=== PATIENT | female | born 1980 | race Caucasian/White ===

== ENCOUNTER 2017-07-19 19:19 | Inpatient (IN) | payer BC ==
[~2017-07-19 19:19] MED LIST: Dinoprostone* 10 MG VAG.SUPP VAGINAL ONE
--- NOTE | 2017-07-19 20:17 | HP ---
General Information - General Information Maternal Age: 37 Grav: 2 Para: 1 SAB: 0 IEA: 0 Estimated Due Date: 07/22/17 - 38 07/15 Determined By: Early Ultrasound Gestational Age in Weeks and Days: 35 Weeks and 5 Days Maternal Blood Type and Rh: O Positive - Results this Serology/RPR Result: Non-Reactive Rubella Result: Immune HBsAg Result: Negative HIV Result: Negative GBS Culture Result: Positive Past Medical History Delivery History: Hx Uncomplicated Vaginal Delivery Pertinent Past Medical History: See Records - Hx infertility Pertinent Past Surgical History: See Records - laparoscopy endometriosis 2008, 2016 Pertinent Family History: Non-Contributory - Antepartal Records Antepartal Records: Reviewed, Complicated by: - IVF, normal growth sono at 32 wks. Anemia, taking Fe daily. AMA, NIPT normal Review of Systems Constitutional: Comfortable CV Complaint: No Respiratory: Shortness of Breath: No Genitourinary: No Dysuria, No Bleeding, No Leaking Fluid Musculoskeletal: No Complaint Neurological: No Headache Movement: Normal - Comments Occasional nausea; loose stools Exam Allergies/Adverse Reactions: Allergies iodine Allergy (Verified 06/22/17 16:16) Unknown Reaction Details Family hx of rxn Tetanus Vaccines and Toxoid Allergy (Verified 06/22/17 16:16) Unknown Reaction Details Family hx of rxn BP 133/85, 119/81; T; 98.3 P 104; R 18 - Measurements Height: 5 ft 3 in Weight: 195 lb Body Mass Index (BMI): 34.5 Pre- Weight: 180 lb - 15 lbs this - Exam Abdomen: No Upper Quadrant Pain Breast: Breast Exam Deferred CVA: No CVA Tenderness Extremities: No Edema Heart: Normal Rhythm/Heart Sounds HEENT: No Significant Findings Lungs: Clear Bilaterally Rectal: Rectal Exam Deferred Reflexes: DTR 2+ Thyroid: No Thyromegaly - Cervical Exam 1-2 outer os, inner os closed/50/-2, vtx - Abdominal Exam Abdomen Exam: Non-Tender, Fundal Height Consistent with Dates - Membranes Membrane Status: Intact - Ultrasound/Biophysical Profile Ultrasound Status: Not Done EFM Findings - External Monitor Findings Baseline Heart Rate: 130 External Monitor Findings: Accelerations Present, No Pattern of Variable or Late Decelerations, Variability Moderate Contractions: None Assessment/Plan - Obstetrical Risk Factors Obstetrical Risk Factors: GBS Positive - Plan Plan: Cervical Ripening - Date/Time of Admission Date of Admission: 07/19/17 Time of Admission: 20:21
[2017-07-20] MEDS ORDERED: Misoprostol TAB* 100 MCG VAGINAL ONE (08:20)
[2017-07-20 12:38] LABS: ABS Basophils 0 10^3/ul (0-0.2); ABS Eosinophils 0 10^3/ul (0-0.6); ABS Lymphocytes 0.8 10^3/ul (1.0-4.8); ABS Monocytes 0.8 10^3/ul (0-0.8); ABS Nucleated RBC 0 10^3/ul; Eosinophil % 0.2 % (0-6); Hematocrit 30 % (35-47); Hemoglobin 9.4 g/dl (12.0-16.0); Lymphocyte % 11.9 % (25-47); Mean Corpuscular HGB Conc 32 g/dl (31-36); Mean Corpuscular Hemoglobin 26 pg (27-31); Mean Corpuscular Volume 82 fL (80-97); Mean Platelet Volume 9.7 um3 (7.4-10.4); Nucleated Red Blood Cells % 0.1; Platelet Count 182 10^3/ul (150-450); Red Blood Count 3.59 10^6/ul (4.0-5.4); Red Cell Distribution Width 16 % (10.5-15); White Blood Count 6.5 10^3/ul (3.5-10.8)
[2017-07-20] MEDS ORDERED: Oxytocin in LR* 20 UNITS/1,000 ML BAG IVPB ONE (12:39)
[2017-07-20] MEDS ORDERED: Oxytocin in LR* 20 UNITS/1,000 ML BAG IVPB SCH (13:00)
[2017-07-20] MEDS ORDERED: Penicillin G Potassium IV* 5,000,000 UNITS in NS 0.9% 100 ML* 100 ML IVPB ONE (16:19)
[2017-07-20] MEDS ORDERED: fentaNYL* 50 MCG/ML 2 ML VIAL (100 MCG VIAL) ONE (19:30)
[2017-07-20] MEDS ORDERED: OBEPIDURAL* 250 ML EPIDURAL ONE (19:32)
[2017-07-20] MEDS ORDERED: Phenylephrine IV* 40 MCG/ML 10 ML SYRINGE IV PUSH PRN (19:56)
[2017-07-20] MEDS ORDERED: Famotidine TAB* 20 MG PO PRN (19:56)
[2017-07-20] MEDS ORDERED: Sodium Citrate/Citric Acid* 15 ML UDC PO PRN (19:56)
[2017-07-20] MEDS ORDERED: EPHEDrine (Pressors)* 50 MG/ML VIAL IV PUSH PRN (19:56)
[2017-07-20] MEDS ORDERED: OBEPIDURAL* 250 ML EPIDURAL SCH (20:00)
[2017-07-20] MEDS: Penicillin G Potassium IV* 2,500,000 UNITS in NS 0.9% 100 ML* 100 ML IVPB SCH (20:37)
[2017-07-21] MEDS ORDERED: Misoprostol TAB* 200 MCG PR ONE (00:15)
[2017-07-21] MEDS ORDERED: Dibucaine 1% 28.35 GM TUBE PR PRN (00:36)
[2017-07-21] MEDS ORDERED: Oxytocin in LR* 20 UNITS/1,000 ML BAG IVPB SCH (00:38)
[2017-07-21] MEDS: Penicillin G Potassium IV* 2,500,000 UNITS in NS 0.9% 100 ML* 100 ML IVPB SCH ×3 (01:26→09:21)
[2017-07-21] MEDS: Ibuprofen TAB* 600 MG PO PRN ×4 (04:23→21:56)
[2017-07-21] MEDS ORDERED: Ammonia Inhalant* 1 EA AMP ONE (04:34)
[2017-07-21] MEDS ORDERED: Lidocaine 1% MPF* 2 ML VIAL ONE (07:33)
[2017-07-21] MEDS ORDERED: Ferrous Gluconate TAB* 324 MG TAB ONE ×2 (09:57→19:42)
[2017-07-21] MEDS: Ferrous Gluconate TAB* 324 MG TAB PO SCH (10:09)
[2017-07-21] MEDS: Docusate CAP* 100 MG PO SCH ×3 (10:09→19:57)
[2017-07-21] MEDS: Acetaminophen TAB* 325 MG PO PRN ×2 (11:50→19:58)
[2017-07-21] MEDS: Witch Hazel PAD* JAR TOPICAL PRN (15:48)
[2017-07-22] MEDS: Ibuprofen TAB* 600 MG PO PRN ×3 (04:05→21:03)
[2017-07-22 06:55] LABS: Hematocrit 18 % (35-47); Hemoglobin 5.8 g/dl (12.0-16.0); Mean Corpuscular HGB Conc 33 g/dl (31-36); Mean Corpuscular Hemoglobin 27 pg (27-31); Mean Corpuscular Volume 82 fL (80-97); Mean Platelet Volume 9.6 um3 (7.4-10.4); Platelet Count 164 10^3/ul (150-450); Red Blood Count 2.14 10^6/ul (4.0-5.4); Red Cell Distribution Width 16 % (10.5-15); White Blood Count 7.7 10^3/ul (3.5-10.8)
[2017-07-22] MEDS: Docusate CAP* 100 MG PO SCH ×3 (08:35→21:02)
[2017-07-22] MEDS: Ferrous Gluconate TAB* 324 MG TAB PO SCH ×2 (08:36→21:00)
[2017-07-22] MEDS: Witch Hazel PAD* JAR TOPICAL PRN (11:22)
[2017-07-22 19:24] LABS: ABS Basophils 0 10^3/ul (0-0.2); ABS Eosinophils 0 10^3/ul (0-0.6); ABS Lymphocytes 1.3 10^3/ul (1.0-4.8); ABS Monocytes 0.8 10^3/ul (0-0.8); ABS Neutrophils 6.4 10^3/ul (1.5-7.7); ABS Nucleated RBC 0 10^3/ul; Eosinophil % 0.5 % (0-6); Hematocrit 25 % (35-47); Hemoglobin 8.2 g/dl (12.0-16.0); Lymphocyte % 15.1 % (25-47); Mean Corpuscular HGB Conc 33 g/dl (31-36); Mean Corpuscular Hemoglobin 27 pg (27-31); Mean Corpuscular Volume 83 fL (80-97); Mean Platelet Volume 9.3 um3 (7.4-10.4); Nucleated Red Blood Cells % 0.1; Platelet Count 219 10^3/ul (150-450); Red Blood Count 2.98 10^6/ul (4.0-5.4); Red Cell Distribution Width 15 % (10.5-15); White Blood Count 8.6 10^3/ul (3.5-10.8)
[2017-07-23] MEDS: Ibuprofen TAB* 600 MG PO PRN ×2 (05:07→11:22)
[2017-07-23 07:12] LABS: ABS Basophils 0 10^3/ul (0-0.2); ABS Eosinophils 0.1 10^3/ul (0-0.6); ABS Monocytes 0.7 10^3/ul (0-0.8); ABS Neutrophils 4.5 10^3/ul (1.5-7.7); ABS Nucleated RBC 0 10^3/ul; Eosinophil % 1.2 % (0-6); Hematocrit 22 % (35-47); Hemoglobin 7.2 g/dl (12.0-16.0); Lymphocyte % 16.4 % (25-47); Mean Corpuscular HGB Conc 33 g/dl (31-36); Mean Corpuscular Hemoglobin 28 pg (27-31); Mean Corpuscular Volume 83 fL (80-97); Mean Platelet Volume 9.4 um3 (7.4-10.4); Nucleated Red Blood Cells % 0.1; Platelet Count 220 10^3/ul (150-450); Red Blood Count 2.62 10^6/ul (4.0-5.4); Red Cell Distribution Width 15 % (10.5-15); White Blood Count 6.3 10^3/ul (3.5-10.8)
[2017-07-23 08:01] VITALS: BP 106/63
[2017-07-23] MEDS: Ferrous Gluconate TAB* 324 MG TAB PO SCH (08:20)
[2017-07-23] MEDS: Docusate CAP* 100 MG PO SCH (08:20)
[2017-07-23] MEDS: Acetaminophen TAB* 325 MG PO PRN (09:06)
== END 2017-07-23 12:30 | disposition home or self-care (01) | DRG 542 ==
LOC: MCHOBOUT 19:19 → MCHOB 19:34
PROVIDERS: ADMIT Midwife; ATTEND Midwife
PROC: 10E0XZZ Delivery of Products of Conception, External Approach (ICD-10-PCS; principal; 2017-07-21)
PROC: 0DQR0ZZ Repair Anal Sphincter, Open Approach (ICD-10-PCS; 2017-07-21)
PROC: 3E0P7VZ Introduction of Hormone into Female Reproductive, Via Natural or Artificial Opening (ICD-10-PCS; 2017-07-21)
PROC: 10907ZC Drainage of Amniotic Fluid, Therapeutic from Products of Conception, Via Natural or Artificial Opening (ICD-10-PCS; 2017-07-21)
PROC: 4A1HXCZ Monitoring of Products of Conception, Cardiac Rate, External Approach (ICD-10-PCS; 2017-07-21)
PROC: 30233N1 Transfusion of Nonautologous Red Blood Cells into Peripheral Vein, Percutaneous Approach (ICD-10-PCS; 2017-07-22)
DX: O99.824 Streptococcus B carrier state complicating childbirth (principal); O90.89 Other complications of the puerperium, not elsewhere classified; O70.20 Third degree perineal laceration during delivery, unspecified; O66.0 Obstructed labor due to shoulder dystocia; O75.89 Other specified complications of labor and delivery; K64.9 Unspecified hemorrhoids; O99.03 Anemia complicating the puerperium; R51 Headache; Z88.7 Allergy status to serum and vaccine; Z88.8 Allergy status to other drugs, medicaments and biological substances; Z3A.39 39 weeks gestation of pregnancy; Z37.0 Single live birth
CPT/HCPCS: 36415; 59200; 85025; 85027; 86850; 86900; 86901; 86922; A9270-GY; J2540; J3010; P9040; S0191